=== PATIENT | female | born 1965 | race Caucasian/White ===

== ENCOUNTER 2021-02-09 08:01 | Emergency (ER) | payer OTHER, SELFPAY ==
[2021-02-09 08:07] VITALS: BP 144/79; PULSE 94; RESP 18; TEMP 36.8; O2SAT 100
--- NOTE | 2021-02-09 11:18 | ED.EYEPROB ---
HPI - Eye Problem General Chief complaint: Eye Problems Stated complaint: Swelling of Eye Time Seen by Provider: 02/09/21 10:52 Source: patient Mode of arrival: ambulatory Limitations: no limitations History of Present Illness HPI Narrative: Patient presents with left upper eyelid redness started few days ago, was seen at urgent care yesterday and got discharged on Polytrim eyedrops, Keflex 500 3 times daily for 7 days. Patient came to us today because she believes her symptoms are not improving. Patient denies any vision change, headache, nausea, vomiting, fever, chills, eye discharge or eyeball pain Review of Systems Review of Systems: CONSTITUTIONAL: Denies fever, chills, or sweats. EYES: Denies visual changes, redness, or discharge. ENT: Denies rhinorrhea, congestion, sore throat, or otalgia. CARDIOVASCULAR: Denies chest pain, palpitations, or edema. RESPIRATORY: Denies cough or dyspnea. GASTROINTESTINAL: Denies abdominal pain, nausea, vomiting, or diarrhea. GENITOURINARY: Denies dysuria or hematuria. SKIN: Denies rash or itching. MUSCULOSKELETAL: Denies back pain, joint pain, or myalgia. NEUROLOGIC: Denies headache, numbness, or weakness. PSYCHIATRIC: Denies anxiety or depression. Exam Narrative: General appearance: Well-developed, well-nourished Skin: Normal color Head: Normocephalic, nontraumatic Eyes: Clear conjunctiva ENT: Oropharynx normal, ears normal, nose normal Neck: Supple, nontender Chest and respiratory: Airway patent, no respiratory distress, no accessory muscle use Heart: Regular rate/rhythm A Neurologic: Alert and oriented ?3, HVAC DESIGNER is normal as tested, no gross motor deficit Eyes: Eyes/upper lids images: 1. Erythematous, tender, slightly swollen Course Course Emergency Course: Stable Vital Signs Vital signs: Vital Signs Temperature 36.8 C 02/09/21 08:07 Pulse Rate 94 02/09/21 08:07 Respiratory Rate 18 02/09/21 08:07 Blood Pressure 144/79 H 02/09/21 08:07 Pulse Oximetry 100 02/09/21 08:07 Temperature 36.8 C 02/09/21 08:07 Pulse Rate 94 02/09/21 08:07 Respiratory Rate 18 02/09/21 08:07 Blood Pressure 144/79 H 02/09/21 08:07 Pulse Oximetry 100 02/09/21 08:07 MDM - Eye Problem MDM Narrative Medical decision making narrative: My concern is blepharitis versus beginning of stye formation. I agreed with the plan of the urgent care yesterday. Probably erythromycin ointment will do a better job than Polytrim eyedrops. Patient will be discharged to continue home medications and replace Polytrim to erythromycin ointment. Critical Care Time Critical Care Time Critical Care Time: No Discharge Plan Discharge Clinical Impression: Blepharitis of eyelid of left eye Qualifiers: Blepharitis type: unspecified type Eyelid: upper Qualified Code(s): H01.004 - Unspecified blepharitis left upper eyelid Patient Disposition: Home, Self-Care Condition: Stable Instructions: Antibiotic Form, Blepharitis (ED) Additional Instructions: Warm compresses 10-15 times up to 4 times a day, continue home Keflex, Follow-up with edge plugger if there is no improvement in 3 to 5 days. Follow-up with [facility] at [phone] Prescriptions: New erythromycin 5 mg/gram (0.5 %) ointment 0.5 inch ophthalmic (eye) TID Qty: 1 RF: 0 Follow-up/Referrals: PHYSICIAN,VANSTONE MACHINE OPERATOR [Primary Care Provider] - Vince Perla MD [Physician] - 02/14/21
== END 2021-02-09 11:37 | disposition home or self-care (01) ==
PROVIDERS: Emergency Provider Emergency Medicine
DX: H01.004 Unspecified blepharitis left upper eyelid (principal)
CPT/HCPCS: 99283

== ENCOUNTER → 2022-01-22 11:58 | Outpatient (CLI) | payer OTHER, SELFPAY ==
--- NOTE | ~2022-01-22 | DEXA_ITS ---
Bone Density Report Name: ELA ANDERSON Age: 56 Sex: Female Ethnicity: White Date of : 1965 Indication: postmenopausal; screening for osteoporosis; parental hip fracture; Referring Provider: MARTINSOPHIA Study: Bone densitometry was performed. Exam Date: January 22, 2022 Accession number: [id number] Bone Density: Region BMD T-score Z-score Classification AP Spine (L1-L4) 0.783 -2.4 -1.3 Osteopenia Femoral Neck (Left) 0.599 -2.3 -1.2 Osteopenia Total Hip (Left) 0.728 -1.8 -1.0 Osteopenia Femoral Neck (Right) 0.601 -2.2 -1.1 Osteopenia Total Hip (Right) 0.701 -2.0 -1.3 Osteopenia Total Hip Mean 0.715 -1.9 -1.2 Osteopenia World Health Organization criteria for BMD impression classify patients as: Normal (T-score at or above -1.0), Osteopenia (T-score between -1.0 and -2.5), or Osteoporosis (T-score at or below -2.5). 10-year Fracture Risk(1): Major Osteoporotic Fracture 17% Hip Fracture 1.4% Reported Risk Factors: [place] (), Neck BMD=0.599, BMI=24.2, parental fracture (1) FRAX(R) Version 3.08. Fracture probability calculated for an untreated patient. Fracture probability may be lower if the patient has received treatment. Clinical Information Provided by Patient: Parent has had a hip fracture Patient maximum height was 62.5 Menopause Age: 52 Drinks caffeinated beverages Onset of menses at age 14 Number of children 1 Impression: The patient has low bone mass, based on the Total Spine T-score. The patient has an estimated ten-year risk of hip fracture of 1.4% and an estimated ten-year risk of major fracture of 17%, based on the WHO FRAX algorithm. The patient has risk factors, including: parental hip fracture. Discussion: BONE DENSITY IS LOW AT ONE OR MORE SKELETAL SITES. This patient's lowest T-score is low at one or more skeletal sites. It meets the World Health Organization's (WHO) criteria for ?low bone mass? (T-score between -1.0 and -2.5). The patient's 10-year risk of fracture as calculated by FRAX is less than the threshold where pharmacological therapy is recommended by the National Osteoporosis Foundation (NOF). However, all treatment decisions require clinical judgment and consideration of individual patient factors, including patient preferences, comorbidities, previous drug use, risk factors not captured in the FRAX model (e.g., frailty, falls, vitamin D deficiency, increased bone turnover, interval significant decline in bone density) and possible under or overestimation of fracture risk by FRAX. The patient should follow a healthful lifestyle (good nutrition with adequate calcium and vitamin D, and appropriate weight-bearing exercise). Follow-Up: Consider repeating this study in 2 to 3 years to reassess this patient's status, or sooner if there is some new clinical
--- NOTE | ~2022-01-22 | MM_ITS ---
EXAMINATION: MM screening [facility] BI w onur HISTORY: Baseline screening mammogram TECHNIQUE: Craniocaudal and mediolateral oblique 3-D tomosynthesis images were obtained and synthetic 2-D images were generated. CAD analysis was submitted and interpreted. COMPARISON: None, baseline BREAST PARENCHYMAL COMPOSITION: There are scattered areas of fibroglandular density. FINDINGS: RIGHT BREAST: There is a possible mass in the anterior third of the lower breast. LEFT BREAST: A mass is present in the middle third of the central breast 4 cm from the nipple. IMPRESSION: 1. Bilateral breast findings as described above. 2. Additional mammographic views and possible breast ultrasound are recommended. BI-RADS Category 0: Incomplete: Needs additional imaging evaluation. Reviewed, dictated and finalized at location A. IGN EXCHANGE STUDENT COORDINATOR IMPRESSION: 1. Bilateral breast findings as described above. 2. Additional mammographic views and possible breast ultrasound are recommended . BI-RADS Category 0: Incomplete: Needs additional imaging evaluation.
== END ==
PROVIDERS: PCP Nurse Practitioner Family; Visit Provider Nurse Practitioner Family
DX: Z12.31 Encounter for screening mammogram for malignant neoplasm of breast (principal); Z78.0 Asymptomatic menopausal state; R92.8 Other abnormal and inconclusive findings on diagnostic imaging of breast; M85.88 Other specified disorders of bone density and structure, other site; M85.852 Other specified disorders of bone density and structure, left thigh; M85.851 Other specified disorders of bone density and structure, right thigh
CPT/HCPCS: 77063; 77067; 77080

== ENCOUNTER 2022-02-13 12:18 | Outpatient (CLI) | payer OTHER, SELFPAY ==
--- NOTE | ~2022-02-13 | MMUS_ITS ---
EXAMINATION: MM diagnostic mp BI w onur, US breast LT complete HISTORY: Follow-up bilateral breast asymmetries. TECHNIQUE: Additional 3-D tomosynthesis images of the breasts were performed and synthetic 2-D images were generated. CAD analysis was submitted and interpreted. High resolution complete left breast ult rasound was performed. COMPARISON: 01/22/2022 BREAST PARENCHYMAL COMPOSITION: The breasts are heterogeneously dense, which may obscure small masses FINDINGS: MAMMOGRAPHIC FINDINGS: There is a mass in the upper slightly outer aspect of the left breast containing layering calcificati ons, most likely benign. There is a mass in the lower aspect of the right breast. ULTRASOUND: Complete US of all 4 quadrants of the left breast and retroareolar region was reviewed. At 12:00, 1 c m from the nipple there is a 6 mm cyst corresponding to the mammographic finding. IMPRESSION: 1. No evidence for malignancy in the left breast. 2. Recommend right breast ultrasound. BI-RADS CATEGORY 0 - INCOMPLETE STUDY, NEED ADDITIONAL IMAGING EVALUATION. Reviewed, dictated and finalized at location A. UALIZATION ENGINEER IMPRESSION: 1. No evidence for malignancy in the left breast. 2. Recommend right breast ultrasound. BI-RADS CATEGORY 0 - INCOMPLETE STUDY, NEED ADDITIONAL IMAGING EVALUATION.
== END 2022-02-13 12:19 | disposition home or self-care (01) ==
PROVIDERS: PCP Nurse Practitioner Family; Visit Provider Nurse Practitioner Family
DX: R92.8 Other abnormal and inconclusive findings on diagnostic imaging of breast (principal)
CPT/HCPCS: 76641; 77062; 77066; G0279

== ENCOUNTER 2022-02-25 10:50 | Outpatient (CLI) | payer OTHER, SELFPAY ==
--- NOTE | ~2022-02-25 | US_ITS ---
EXAMINATION: US breast RT limited HISTORY: Possible right breast mass on screening and diagnostic mammogram. TECHNIQUE: Limited right breast ultrasound was performed. FINDINGS: There is a 5 mm x 4 mm oval, circumscribed, hypoechoic mass with an angular margin, no post erior features, and internal vascularity at the 4:00 location 1 cm from the nipple. IMPRESSION: Indeterminate right breast mass. Ultrasound guided biopsy is recommended. BI-RADS category 4, suspicious findings. Reviewed, dictated and finalized at location A. BENCH OPERATOR HELPER
== END 2022-02-25 10:51 | disposition home or self-care (01) ==
PROVIDERS: PCP Nurse Practitioner Family; Visit Provider Nurse Practitioner Family
DX: R92.8 Other abnormal and inconclusive findings on diagnostic imaging of breast (principal)
CPT/HCPCS: 76642

== ENCOUNTER 2022-03-07 09:18 | Outpatient (CLI) | payer OTHER, SELFPAY ==
--- NOTE | ~2022-03-07 | MMUS_ITS ---
US breast biopsy RT w image, MM post biopsy invasive RT EXAMINATION: US GUIDED NEEDLE BIOPSY WITH VAC UUM ASSISTANCE DATE: 03/07/2022 10:55 MOLDED RUBBER GOODS CUTTER INDICATION: Right breast mass seen on recent examination. Ultrasound-guided core biopsy is requested to evaluate for malignancy. TECHNIQUE AND FINDINGS: The risks and potential benefits of the procedure were discussed with the patient, and written inform ed consent was obtained. After sterile preparation of the right breast, 1% lidocaine was utilized fo r local anesthesia. 1% lidocaine with epinephrine was used for deep anesthesia. A 10G vacuum-assisted biopsy gun needle was advanced through to the outer edge of the region of inter est from a inferior lateral approach utilizing sonographic guidance. A total of 4 tissue core sample s were obtained through the lesion at 4:00, 1 cm from the nipple.. An Inrad tissue marker clip was t hen placed at the biopsy site. Hemostasis was achieved. The patient tolerated procedure well and there was no evidence of immediate complication. The patien t was given verbal instructions partly is from the department. Right breast mammograms to document t issue marker clip placement. The tissue samples were submitted to surgical pathology for histologic a nalysis. IMPRESSION: 1. Successful ultrasound-guided vacuum-assisted biopsy of right breast mass with tissue marker place ment. Please refer to pathology report for histologic analysis. Reviewed, dictated and finalized at location A. ED RUBBER GOODS CUTTER IMPRESSION: 1. Successful ultrasound-guided vacuum-assisted biopsy of right breast mass wi th tissue marker placement. Please refer to pathology report for histologic tiffanie lysis.
== END 2022-03-07 09:19 | disposition home or self-care (01) ==
PROVIDERS: PCP Nurse Practitioner Family; Visit Provider Nurse Practitioner Family
DX: R92.8 Other abnormal and inconclusive findings on diagnostic imaging of breast (principal)
CPT/HCPCS: 19083; 88305; 88342; A4648